=== PATIENT | female | born 1980 | race Two or more races ===

== ENCOUNTER 2022-06-24 15:35 | Outpatient (REF) | payer MEDICAID, OTHER, SELFPAY ==
--- NOTE | ~2022-06-24 | US_ITS ---
EXAMINATION: US PELVIS CLINICAL INFORMATION: Abnormal uterine and vaginal bleeding. COMPARISON: None. TECHNIQUE: Ultrasound of the pelvis is performed using both transabdominal and transvaginal transducers along with Doppler. Transvaginal imaging is performed due to inadequate visualization transabdominally. FINDINGS: Uterus: The uterus is anteverted and measures 9.1 x 11.2 x 5.2 cm. The double wall endometrial thickness is 0.9 mm. The uterus is smooth in contour and has normal myometrial echogenicity. No visible fibroid. There are small nabothian cysts in the cervix. Adnexa: Both ovaries are visualized. There is normal color flow to the adnexa. There is no ovarian torsion. There is no pelvic ascites or fluid collection. Right ovary measures 2.5 x 1.5 x 2.1 cm and volume 4.1 mL. There is anechoic paraovarian cyst measuring 1.4 x 0.9 x 0.6 cm. Left ovary measures 4.8 x 3.0 3.8 cm and volume 20.7 mL. There is an anechoic cyst measuring 3.7 x 3.1 x 3.5 cm. There is no free fluid in the cul-de-sac. US/US pelvic and transvaginal IMPRESSION: Right paraovarian cyst measuring 1.4 cm. A 3.7 cm left ovarian cyst. The uterus is unremarkable. Nabothian cysts in the cervix.
== END 2022-06-24 15:36 | disposition home or self-care (01) ==
LOC: HO.US 15:35
PROVIDERS: Visit Provider Emergency Medicine
DX: N93.9 Abnormal uterine and vaginal bleeding, unspecified (principal)
CPT/HCPCS: 76830; 76856